=== PATIENT | male | born 1975 | race Caucasian/White ===

== ENCOUNTER 2019-11-03 22:06 | Emergency (ER) | payer BC, OTHER ==
[2019-11-03] MEDS ORDERED: MORPHINE SULFATE 10 MG/ML INJ IV ONE (23:44)
[2019-11-03] MEDS ORDERED: ONDANSETRON HCL INJ/PF 4 MG/2 ML SDV IV ONE (23:44)
[2019-11-03] MEDS ORDERED: KETOROLAC TROMETHAMINE INJ/PF 30 MG/1 ML SDV IV ONE (23:44)
--- NOTE | 2019-11-03 23:45 | ER Document Report ---
ED Medical Screen (RME) - General Chief Complaint: Possible Kidney Stone Stated Complaint: RIGHT FLANK PAIN Time Seen by Provider: 11/03/19 23:42 Notes: Patient presents with right flank pain off and on for the past 2 weeks that worsened today. Patient reports nausea and vomiting. Patient states pain radiates around to right side of abdomen and into the scrotum. Patient states he had pain like this in the past with kidney stones. I have greeted and performed a rapid initial assessment of this patient. A comprehensive ED assessment and evaluation of the patient, analysis of test results and completion of the medical decision making process will be conducted by additional ED providers. Physical Exam - Vital signs Vitals: Temp Pulse Resp BP Pulse Ox 97.7 F 87 20 145/99 H 100 11/03/19 22:28 11/03/19 22:28 11/03/19 22:28 11/03/19 22:28 11/03/19 22:28 - General General appearance: Alert In distress: Moderate Notes: Right flank tenderness Course - Vital Signs Vital signs: Temp Pulse Resp BP Pulse Ox 97.7 F 87 20 145/99 H 100 11/03/19 22:28 11/03/19 22:28 11/03/19 22:28 11/03/19 22:28 11/03/19 22:28
[2019-11-04 00:28] LABS: ABSOLUTE BASOPHILS # (AUTO) 0.1 10^3/uL (0.0-0.2); ABSOLUTE LYMPHOCYTES (AUTO) 1.8 10^3/uL (0.5-4.7); ABSOLUTE MONOCYTES (AUTO) 0.9 10^3/uL (0.1-1.4); ABSOLUTE NEUT (AUTO) 13.6 10^3/uL (1.7-8.2); BASOPHILS % (AUTO) 0.5 % (0-2); EOSINOPHILS % (AUTO) 0.2 % (0-6); HEMATOCRIT 44.8 % (37.9-51.0); HEMOGLOBIN 15.5 g/dL (13.5-17.0); LYMPHOCYTES % (AUTO) 11.1 % (13-45); MEAN CORPUSCULAR HEMOGLOBIN 30.9 pg (27.0-33.4); MEAN CORPUSCULAR HGB CONC 34.7 g/dL (32.0-36.0); MEAN CORPUSCULAR VOLUME 89 fl (80-97); MONOCYTES % (AUTO) 5.3 % (3-13); PLATELET COUNT 273 10^3/uL (150-450); RED BLOOD COUNT 5.02 10^6/uL (4.35-5.55); RED CELL DISTRIBUTION WIDTH 12.5 % (11.5-14.0); SEGMENTED NEUTROPHILS % (AUTO) 82.9 % (42-78); TOTAL CELLS COUNTED % (AUTO) 100 %; WHITE BLOOD COUNT 16.4 10^3/uL (4.0-10.5)
[2019-11-04 01:02] LABS: ALBUMIN 4.8 g/dL (3.5-5.0); ALKALINE PHOSPHATASE 84 U/L (38-126); ANION GAP 9 (5-19); ASPARTATE AMINO TRANSFERASE 36 U/L (17-59); BILIRUBIN,TOTAL 1.1 mg/dL (0.2-1.3); BLOOD UREA NITROGEN 23 mg/dL (7-20); CALCIUM 9.6 mg/dL (8.4-10.2); CARBON DIOXIDE 26 mmol/L (22-30); CHLORIDE 102 mmol/L (98-107); GLUCOSE 158 mg/dL (75-110); POTASSIUM 4.5 mmol/L (3.6-5.0); TOTAL PROTEIN 8.1 g/dL (6.3-8.2)
[2019-11-04] MEDS ORDERED: NORMAL SALINE 1000 ML 1,000 ML IV ONE (01:02)
--- NOTE | 2019-11-04 01:02 | ER Document Report ---
ED General - General Chief Complaint: Possible Kidney Stone Stated Complaint: RIGHT FLANK PAIN Time Seen by Provider: 11/03/19 23:42 Mode of Arrival: Ambulatory Information source: Patient Notes: Yuridia notes Patient presents with right flank pain off and on for the past 2 weeks that worsened today. Patient reports nausea and vomiting. Patient states pain radiates around to right side of abdomen and into the scrotum. Patient states he had pain like this in the past with kidney stones. my notes 44-year-old male arrives with right flank pain and right inguinal pain for the last 2 weeks. It is worsened over the last 24 hours associated with nausea and vomiting. Patient reports his last stone resection was over 15 years ago. He has had at least 6 kidney stones in his past and the last one was over 1 year ago. Patient was given pain medicine narcotic and Toradol and continues to have writhing pain. CT reveals a 7 mm stone in the proximal ureter with hydronephrosis. - HPI Onset: Last week Onset/Duration: Sudden, Persistent, Worse Quality of pain: Achy Severity: Severe Pain Level: 5 Associated symptoms: None Exacerbated by: Denies Relieved by: Denies Similar symptoms previously: Yes Recently seen / treated by doctor: No - Related Data Allergies/Adverse Reactions: codeine Adverse Reaction (Verified 11/04/19 01:24) Nausea Past Medical History - General Information source: Patient - Social History Smoking Status: Never Smoker Cigarette use (# per day): No Chew tobacco use (# tins/day): No Smoking Education Provided: No Frequency of alcohol use: None Drug Abuse: None Lives with: Family Family History: Reviewed & Not Pertinent Patient has suicidal ideation: No Patient has homicidal ideation: No Review of Systems - Review of Systems Constitutional: No symptoms reported EENT: No symptoms reported Cardiovascular: No symptoms reported Respiratory: No symptoms reported Gastrointestinal: See HPI, Abdominal pain Genitourinary: See HPI, Dysuria, Frequency, Flank pain Male Genitourinary: No symptoms reported Musculoskeletal: No symptoms reported Skin: No symptoms reported Hematologic/Lymphatic: No symptoms reported Neurological/Psychological: No symptoms reported Physical Exam - Vital signs Vitals: Temp Pulse Resp BP Pulse Ox 97.7 F 87 20 145/99 H 100 11/03/19 22:28 11/03/19 22:28 11/03/19 22:28 11/03/19 22:28 11/03/19 22:28 Interpretation: Normal - General General appearance: Alert, Anxious - HEENT Head: Normocephalic, Atraumatic Eyes: Normal Pupils: PERRL Pharynx: Normal Neck: Normal - Respiratory Respiratory status: No respiratory distress Chest status: Nontender Breath sounds: Normal Chest palpation: Normal - Cardiovascular Rhythm: Regular Heart sounds: Normal auscultation Murmur: No - Abdominal Inspection: Normal Tenderness: Tender, Other - right cva - Rectal Tenderness: No - Genitourinary Scrotum: Normal - Back Back: CVA tenderness - right - Extremities General upper extremity: Normal inspection General lower extremity: Normal inspection - Neurological Neuro grossly intact: Yes Cognition: Normal Orientation: AAOx4 Kate Coma Scale Eye Opening: Spontaneous Kate Coma Scale Verbal: Oriented [place] Coma Scale Motor: Obeys Commands Kate Coma Scale Total: 15 Speech: Normal Motor strength normal: LUE, RUE, LLE, RLE Sensory: Normal - Psychological Associated symptoms: Anxious - Skin Skin Temperature: Warm Skin Moisture: Dry Course - Vital Signs Vital signs: Temp Pulse Resp BP Pulse Ox 98.1 F 87 18 137/89 H 96 11/04/19 02:46 11/03/19 22:28 11/04/19 04:01 11/04/19 04:01 11/04/19 04:01 - Laboratory Result Diagrams: 11/03/19 23:40 11/03/19 23:40 Laboratory results interpreted by me: 11/03/19 11/03/19 23:40 23:40 WBC 16.4 H Lymph % (Auto) 11.1 L Absolute Neuts (auto) 13.6 H Seg Neutrophils % 82.9 H BUN 23 H Glucose 158 H - Diagnostic Test Radiology reviewed: Reports reviewed Radiology results interpreted by me: 11/04/19 05:37 Right kidney with hydronephrosis and proximal ureter with 7 mm stone Critical Care Note - Critical Care Note Comments: I called [facility] transfer register at [facility] at [phone] and she will arrange for transfer. Sussy returned call at [phone] Hunt the urologist accepts the patient. He advises the OR is full in the morning and therefore will need this afternoon in order to perform the removal. He advises ER to ER transfer. Discharge - Discharge Clinical Impression: Kidney stone on right side Condition: Fair Disposition: [facility] Additional Instructions: Transfer this patient to [facility] for Dr. Hunt urologist
[2019-11-04] MEDS ORDERED: HYDROMORPHONE HCL INJ/PF 2 MG/ML AMPULE IV ONE ×3 (01:07→08:14)
[2019-11-04] MEDS ORDERED: KETOROLAC TROMETHAMINE INJ/PF 30 MG/1 ML SDV IV ONE (01:07)
--- NOTE | 2019-11-04 01:16 | RADIOLOGY REPORT (SQ) ---
EXAM DESCRIPTION: CT abdomen and pelvis without contrast CLINICAL HISTORY: 44 years Male, right flank pain COMPARISON: None. TECHNIQUE: Axial images of the abdomen and pelvis were performed without the use of intravenous contrast, with sagittal and coronal reformatted images. This exam was performed according to our departmental dose-optimization program which includes use of Automated Exposure Control, adjustment of the mA and/or kV according to patient size and/or use of iterative reconstruction technique. FINDINGS: There is a 7 x 5.3 x 5.1 mm stone, in the proximal right ureter, with mild hydronephrosis. There is a stone in the left kidney, but there is no hydronephrosis on the left side. There is a normal-appearing retrocecal appendix. No evidence of bowel obstruction. There is no significant radiographic abnormality of the liver, spleen, pancreas or adrenal glands. No mass or adenopathy. No free air or free fluid. IMPRESSION: Proximal right ureteral stone.
[2019-11-04 05:47] LABS: APPEARANCE,URINE SLIGHTLY-CLOUDY; BILIRUBIN,URINE NEGATIVE (NEGATIVE); COLOR,URINE YELLOW; GLUCOSE, URINE NEGATIVE (NEGATIVE); KETONES,URINE TRACE mg/dL (NEGATIVE); LEUKOCYTE ESTERASE,URINE NEGATIVE (NEGATIVE); NITRITE,URINE NEGATIVE (NEGATIVE); PROTEIN,URINE 30 mg/dL (NEGATIVE); URINE SPECIFIC GRAVITY 1.023; UROBILINOGEN,URINE NEGATIVE mg/dL (<2.0)
[2019-11-04] MEDS ORDERED: ONDANSETRON HCL INJ/PF 4 MG/2 ML SDV IV ONE ×2 (07:15→08:14)
[2019-11-04 08:09] VITALS: BP 136/94
--- NOTE | 2019-11-04 08:14 | ER Document Report ---
Doctor's Note Notes: 11/04/19 08:13 Transport is here for the patient. Vital signs are stable. When they transferred him to the stretcher he began having pain again so he will receive pain medication prior to discharge. He is medically stable for transport.
== END 2019-11-04 08:24 | disposition short-term general hospital (02) ==
LOC: ER 22:06
DX: N20.0 Calculus of kidney (principal); R10.9 Unspecified abdominal pain; Z88.6 Allergy status to analgesic agent
CPT/HCPCS: 96376; 99284; 96361; 96374; 96375; 36415; 85025; 80053; 81001; 74176; J1885 ×2; J1170; J2405 ×2; J7030